=== PATIENT | female | born 1955 | race Caucasian/White ===

== ENCOUNTER 2017-04-18 23:17 | Emergency (ER) | payer OTHER ==
[2017-04-18 23:27] VITALS: BP 165/95
[2017-04-19] MEDS ORDERED: NORCO 5/325 ONE (00:10)
[2017-04-19] MEDS ORDERED: NORCO 5/325 PO ONE (00:11)
--- NOTE | 2017-04-19 00:55 | Emergency Department Report ---
ED Extremity Problem HPI - General Chief complaint: Extremity Injury, Lower Stated complaint: LEG PAIN Time Seen by Provider: 04/19/17 00:31 Source: patient Mode of arrival: Wheelchair Limitations: Language Barrier - History of Present Illness Initial comments: 61 year old female with a past medical history diabetes presents to the hospital status post ground-level fall with complaints of right ankle pain. Pain is constant, rated 8/10 intensity. Worse on movement and palpation. No alleviating factors. No other injury reported. Severity scale (0 -10): 4 - Related Data Previous Rx's Medication Instructions Recorded Last Taken Type HYDROcodone/APAP 5-325 [Hopewell 1 each PO Q6HR PRN #20 tablet 04/19/17 Unknown Rx 5/325] Ibuprofen [Motrin] 600 mg PO Q8H PRN #30 tablet 04/19/17 Unknown Rx Allergies Allergy/AdvReac Type Severity Reaction Status Date / Time No Known Allergies Allergy Verified 04/19/17 00:10 ED Review of Systems ROS: Stated complaint: LEG PAIN Other details as noted in HPI Comment: All other systems reviewed and negative Other: Constitutional: No fevers chills Eyes: No eye pain visual changes ENT: No ear pain or throat pain Neck: Denies pain Respiratory: Denies cough wheezing shortness of breath Cardiovascular: Denies chest pain, palpitations, syncope GI: Denies abdominal pain, nausea, vomiting, diarrhea : Denies dysuria Musculoskeletal: As per HPI Skin: Denies rash, lesions, erythema Neurologic: Denies headache, numbness, weakness Psychiatric: Denies suicidal ideation, hallucinations ED Past Medical Hx - Past Medical History Previous Medical History?: Yes Hx Diabetes: Yes - Social History Smoking Status: Never Smoker Substance Use Type: None - Medications Home Medications: Home Medications Medication Instructions Recorded Confirmed Last Taken Type HYDROcodone/APAP 5-325 [[place] 1 each PO Q6HR PRN #20 tablet 04/19/17 Unknown Rx 5/325] Ibuprofen [Motrin] 600 mg PO Q8H PRN #30 tablet 04/19/17 Unknown Rx ED Physical Exam - General Limitations: Language Barrier - Other Other exam information: General: No limitations, patient is alert in no acute distress Head exam: Atraumatic, normocephalic Eyes exam: Normal appearance ENT: Moist mucous membrane Neck exam: Normal inspection, full range of motion, no meningismus nontender Respiratory exam: Clear to auscultation bilateral, no wheezes, rales, crackles Cardiovascular: Normal rate and rhythm, normal heart sounds Abdomen: Soft, nondistended, and nontender, with normal bowel sounds, no rebound, or guarding Extremity: Right ankle swelling, 2+ DP pulse, tenderness greatest at the lateral malleolus. Back: Normal Inspection, full range of motion, no tenderness Neurologic: Alert, oriented x3, cranial nerves intact, no motor or sensory deficit Psychiatric: normal affect, normal mood Skin: Warm, dry, intact ED Course Vital Signs 04/18/17 23:24 Temperature 99.5 F Pulse Rate 92 H Respiratory 20 Rate Blood Pressure 165/95 O2 Sat by Pulse 98 Oximetry - Reevaluation(s) Reevaluation #1: 04/19/17 00:52 Pain improving after Hopewell ED Medical Decision Making - Radiology Data Radiology results: report reviewed interpreted by me: Read by me: Right ankle x-ray: Distal fib fracture - Medical Decision Making Pain improving with Hopewell. Patient placed in posterior splint. Requires orthopedic follow-up. - Differential Diagnosis fxt, contusion, sprain Critical Care Time: No Critical care attestation.: If time is entered above; I have spent that time in minutes in the direct care of this critically ill patient, excluding procedure time. ED Disposition Clinical Impression: Fracture, ankle Qualifiers: Encounter type: initial encounter Fracture type: closed Laterality: right Qualified Code(s): S82.891A - Other fracture of right lower leg, initial encounter for closed fracture Disposition: DC-01 TO HOME OR SELFCARE Is pt being admited?: No Does the pt Need Aspirin: No Condition: Stable Instructions: Ankle Fracture (ED) Additional Instructions: Take the medication as prescribed. Follow with the orthopedic doctor. Return if symptoms worsen. If you're having difficulty using the crutches then you may purchase a walker to help with ambulation. Philip la medicacin segn lo prescrito. Siga con el doctor orbeatrizdico. Regrese si los sntomas empeoran. Si tiene dificultades para usar las muletas, puede comprar un andador para ayudar con la deambulacin. Prescriptions: HYDROcodone/APAP 5-325 [[place] 5/325] 1 each PO Q6HR PRN #20 tablet PRN Reason: Pain Ibuprofen [Motrin] 600 mg PO Q8H PRN #30 tablet PRN Reason: Pain Referrals: FATIMAH DAVE MD [Staff Physician] - 3-5 Days Time of Disposition: 01:50
--- NOTE | 2017-04-19 01:18 | XRay Report ---
FINAL REPORT PROCEDURE: XR ANKLE 3+V RT TECHNIQUE: RIGHT ankle radiographs, AP, lateral, and oblique views. CPT 34153 HISTORY: rt ankle pain COMPARISON: No prior studies are available for comparison. FINDINGS: Fracture (s) and/or Dislocation(s): There is a nondisplaced fracture of the distal fibula. The tibia is intact.. Alignment: Normal. Joint space(s): Normal. Soft tissues: Normal. Bone mineralization: Normal. Foreign bodies: None. Calcaneal spurring: There are large calcaneal spurs.. IMPRESSION: Fracture of the distal fibula..
== END 2017-04-19 01:54 | disposition home or self-care (01) ==
LOC: ED 23:17
DX: S82.891A Other fracture of right lower leg, initial encounter for closed fracture (principal); E11.9 Type 2 diabetes mellitus without complications; W18.30XA Fall on same level, unspecified, initial encounter; Y93.89 Activity, other specified; Y92.89 Other specified places as the place of occurrence of the external cause; Y99.8 Other external cause status
CPT/HCPCS: 99283